=== PATIENT | female | born 1945 | race Caucasian/White ===

== ENCOUNTER 2017-05-26 08:42 | Emergency (ER) | payer MEDICARE ==
[2017-05-26 08:56] VITALS: RESP 18; TEMP 97.6
[2017-05-26] MEDS ORDERED: KETOROLAC 30 MG/ML 1 ML VIAL IVP STA (09:06)
[2017-05-26] MEDS ORDERED: ONDANSETRON 4 MG/2 ML VIAL IVP STA (09:06)
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
[2017-05-26 09:40] LABS: Basophils % (A) 0 %; CH 33.1; CHCM 34.3; Eosinophils # (A) 0.1 k/uL (0-0.7); Eosinophils % (A) 1 %; HDW 2.25; HGB 13.6 gm/dL (11.4-16.0); Luc # (Auto) 0.09; Luc % (Auto) 1; Lymphocytes % (A) 22 %; MCH 32.1 pg (25.0-35.0); MCHC 33.2 g/dL (31.0-37.0); MCV 96.8 fL (80.0-100.0); Mean Platelet Volume 7.9; Monocytes # (A) 0.4 k/uL (0-1.0); Monocytes % (A) 4 %; Neutrophils # (A) 6.5 k/uL (1.3-7.7); Neutrophils % (A) 72 %; RBC 4.23 m/uL (3.80-5.40); RDW 13.2 % (11.5-15.5); WBC (Perox) 8.57
[2017-05-26 09:53] LABS: Amylase 80 U/L (30-110); Anion Gap 10 mmol/L; Calcium 9.8 mg/dL (8.4-10.2); Carbon Dioxide 23 mmol/L (22-30); Chloride 105 mmol/L (98-107); Glucose 107 mg/dL (74-99); Non-African American GFR(MDRD) >60 (>60 ml/min/1.73 sqM); Sodium 138 mmol/L (137-145); Total Bilirubin 0.7 mg/dL (0.2-1.3)
[2017-05-26] MEDS ORDERED: ORPHENADRINE 30 MG/ML 2 ML VIAL IVP STA (09:56)
[2017-05-26 10:04] LABS: Potassium 4.8 mmol/L (3.5-5.1)
[2017-05-26 10:05] LABS: ALT 45 U/L (9-52); AST 53 U/L (14-36); Blood Urea Nitrogen 16 mg/dL (7-17)
[2017-05-26 10:06] LABS: Alkaline Phosphatase 57 U/L (38-126)
[2017-05-26 10:28] LABS: Appearance,Urine Clear (Clear); Bilirubin,Urine Negative (Negative); Glucose,Urine (UA) Negative (Negative); Ketones,Urine Negative (Negative); Leukocyte Esterase,Urine Negative (Negative); Mucus,Urine Rare /hpf; Nitrite,Urine Negative (Negative); Particle Count 1831; Protein,Urine Negative (Negative); RBC,Urine 11 /hpf (0-5); Specific Gravity,Urine 1.017 (1.001-1.035); Squamous Epithelial Cell,Urine <1 /hpf (0-4); UA Billing (MACRO vs. MICRO) MICRO; Urobilinogen,Urine <2.0 mg/dL (<2.0); WBC,Urine 1 /hpf (0-5)
--- NOTE | 2017-05-26 10:43 | CT ---
EXAMINATION TYPE: CT abdomen pelvis wo con DATE OF EXAM: 05/26/2017 HISTORY: right flank pain, no hx of stones CT DLP: 266.5 mGycm. Automated Exposure Control for Dose Reduction was Utilized. TECHNIQUE: CT scan of the abdomen and pelvis is performed without oral or IV contrast. COMPARISON: NONE FINDINGS: Within the limitations of a non-contrast study, the following observations are made. LUNG BASES: There are several thin-walled cysts scattered throughout both lung bases. LIVER/GB: No significant abnormality is appreciated. PANCREAS: No significant abnormality is seen. SPLEEN: No significant abnormality is seen. ADRENALS: No significant abnormality is seen. KIDNEYS: No renal stones or hydronephrosis is evident bilaterally. Some right-sided pelvic phlebolith s are seen. BOWEL: Evaluation bowel is slightly suboptimal secondary to lack of enteric contrast. There is no monica picious small or large bowel dilatation seen. There is low lying cecum into the right pelvis. No surr ounding inflammatory changes are identified. Appendix is not definitively seen and may be surgically absent. There are diverticula scattered throughout the colon without CT evidence for acute diverticul itis GENITAL ORGANS: Uterus is surgically absent or markedly atrophic in appearance LYMPH NODES: No greater than 1cm abdominal or pelvic lymph nodes are appreciated. OSSEOUS STRUCTURES: No significant abnormality is seen. OTHER: No significant additional abnormality is seen. IMPRESSION: No renal stones or hydronephrosis is seen bilaterally. Colonic diverticulosis without CT evidence for acute diverticulitis. No significant finding is seen to account for patient's symptoms.
[2017-05-26] MEDS ORDERED: HYDROmorphone 1 MG/ML 1 ML SYRINGE IVP STA (10:54)
[2017-05-26 12:18] VITALS: BP 160/70; PULSE 68
== END 2017-05-26 12:17 | disposition home or self-care (01) ==
LOC: EC 08:42
DX: S39.012A Strain of muscle, fascia and tendon of lower back, initial encounter (principal); R31.9 Hematuria, unspecified; Z90.49 Acquired absence of other specified parts of digestive tract; Z79.82 Long term (current) use of aspirin; Z79.899 Other long term (current) drug therapy; X58.XXXA Exposure to other specified factors, initial encounter
CPT/HCPCS: 99284 ×2; 96374 ×2; 96375 ×4; 36415; 80053; 82150; 83690; 85025; 81001; 87086; 74176; J2360; J2405; J1885; J1170